=== PATIENT | male | born 1980 | race Hispanic/Latino ===

== ENCOUNTER → 2017-05-18 | Outpatient (CLI) | payer MEDICAID ==
[~2017-05-18] MED LIST: ESOM2.5S PO; hydrocodone
== END | disposition home or self-care (01) ==
LOC: RAH 09:48
PROVIDERS: ATTEND Internal Medicine
DX: R10.11 Right upper quadrant pain (principal); R16.0 Hepatomegaly, not elsewhere classified
CPT/HCPCS: 76705

== ENCOUNTER → 2017-12-18 | Outpatient (CLI) | payer MEDICAID | END | disposition home or self-care (01) | LOC: OIH 13:20 | PROVIDERS: ATTEND Internal Medicine | DX: M47.895 Other spondylosis, thoracolumbar region (principal); R06.02 Shortness of breath | CPT/HCPCS: 71046; 74018 ==

== ENCOUNTER 2018-01-20 21:18 | Emergency (ER) | payer MEDICAID ==
[2018-01-20] MEDS ORDERED: ASPIRIN 325 MG TABLET ONE (21:30)
[2018-01-20 21:37] LABS: BASOPHILS % (AUTO) 1.1 % (0.0-5.0); EOSINOPHILS % (AUTO) 0.2 % (0.0-8.0); HEMATOCRIT 47.6 % (42-54); LYMPHOCYTES % (AUTO) 17.6 % (21.0-51.0); MEAN CORPUSCULAR HEMOGLOBIN 31.9 pg (27.0-33.0); MEAN CORPUSCULAR HGB CONC 34.9 g/dL (32.0-36.0); MEAN CORPUSCULAR VOLUME 91.6 fL (79-99); MONOCYTES % (AUTO) 9.8 % (3.0-13.0); NEUTROPHILS % (AUTO) 71.3 % (40.0-77.0); PLATELET COUNT (AUTO) 254 K/uL (130-400); WHITE BLOOD COUNT (AUTO) 9.3 K/uL (4.8-10.8)
[2018-01-20 21:47] LABS: POTASSIUM 4.1 mmol/L (3.5-5.1)
[2018-01-20 21:50] LABS: INR 0.93 (0.85-1.15); PARTIAL THROMBOPLASTIN TIME 31.4 SEC (26.3-35.5); PROTHROMBIN TIME 9.8 SEC (9.6-11.6)
[2018-01-20] MEDS ORDERED: LIDOCAINE HCL 2% VISCOUS 15 ML UDCUP ONE (21:50)
[2018-01-20] MEDS ORDERED: MAGNESIUM HYDROXIDE 30 ML/UDCUP ONE (21:50)
[2018-01-20 21:52] LABS: ALBUMIN 3.9 g/dL (3.5-5.0); BILIRUBIN,TOTAL 0.3 mg/dL (0.2-1.0)
[2018-01-20 22:03] LABS: B-TYPE NATRIURETIC PEPTIDE 31 pg/mL (0-100)
[2018-01-20 22:03] LABS: AMPHET/METH SCREEN,URINE NEGATIVE (NEGATIVE); BARBITURATE SCREEN, URINE NEGATIVE (NEGATIVE); BENZODIAZEPINES SCREEN,URINE NEGATIVE (NEGATIVE); CANNABINOID SCREEN,URINE NEGATIVE (NEGATIVE); COCAINE SCREEN,URINE NEGATIVE (NEGATIVE); OPIATE SCREEN,URINE NEGATIVE (NEGATIVE); PHENCYCLIDINE SCREEN,URINE NEGATIVE (NEGATIVE)
[2018-01-20] MEDS ORDERED: DICYCLOMINE HCL 20 MG TAB ONE (22:37)
== END 2018-01-20 22:43 | disposition home or self-care (01) ==
LOC: EDH 21:18
DX: R07.89 Other chest pain (principal); I25.10 Atherosclerotic heart disease of native coronary artery without angina pectoris; Z72.0 Tobacco use
CPT/HCPCS: 36415; 71045; 80053; 80305; 82550; 83880; 84484; 85025; 85610; 85730; 93005; 94761

== ENCOUNTER → 2020-07-24 | Outpatient (CLI) | payer MEDICAID | END | disposition home or self-care (01) | LOC: OIH 09:20 | PROVIDERS: ATTEND Internal Medicine | DX: M24.9 Joint derangement, unspecified (principal); M25.511 Pain in right shoulder | CPT/HCPCS: 73030 ==

== ENCOUNTER 2022-06-15 13:01 | Emergency (ER) | payer MEDICAID ==
[~2022-06-15] VITALS: Ht 170.2 cm; Wt 117.9 kg
[2022-06-15 13:21] LABS: HEMATOCRIT 48.4 % (42-54); MEAN CORPUSCULAR HEMOGLOBIN 31.1 pg (27.0-33.0); MEAN CORPUSCULAR HGB CONC 35.1 g/dL (32.0-36.0); MEAN CORPUSCULAR VOLUME 88.5 fL (79-99); RED BLOOD CELL COUNT(AUTO) 5.47 MIL/uL (4.50-6.20); RED CELL DISTRIBUTION WIDTH 13.1 % (11.0-15.5); WHITE BLOOD COUNT (AUTO) 7.5 K/uL (4.8-10.8)
[2022-06-15 14:11] LABS: APPEARANCE,URINE CLEAR (CLEAR); BILIRUBIN,URINE NEGATIVE (NEGATIVE); COLOR,URINE LIGHT-YELLOW (YELLOW); GLUCOSE, URINE (UA) NEGATIVE (NEGATIVE); KETONES,URINE NEGATIVE (NEGATIVE); LEUKOCYTE ESTERASE ,URINE NEGATIVE Leu/uL (NEGATIVE); NITRATE,URINE NEGATIVE (NEGATIVE); OCCULT BLOOD,URINE NEGATIVE (NEGATIVE); PROTEIN,URINE NEGATIVE (NEGATIVE); UROBILINOGEN,URINE 0.2 mg/dL (0.2-1.0)
[2022-06-15 14:14] LABS: MUCUS,URINE RARE LPF (None Seen); RBC,URINE 0-1 /HPF (0-1)
[2022-06-15 15:06] LABS: CREATININE 0.8 mg/dL (0.5-1.5)
[2022-06-15 15:11] LABS: ALBUMIN 3.7 g/dL (3.5-5.0); TOTAL PROTEIN, SERUM 7.4 g/dL (6.0-8.3)
[2022-06-15] MEDS ORDERED: PREDNISONE 20 MG TABLET PO ONE (15:30)
[2022-06-15] MEDS ORDERED: PRED20TA3 PO (15:32)
[2022-06-15 15:35] VITALS: BP 128/84
[2022-06-15 16:06] LABS: POTASSIUM 3.9 mmol/L (3.5-5.1)
== END 2022-06-15 15:35 | disposition home or self-care (01) ==
LOC: EDH 13:01
DX: G51.0 Bell's palsy (principal); Z79.52 Long term (current) use of systemic steroids
CPT/HCPCS: 36415; 70450; 80053; 81001; 84484; 85027

== ENCOUNTER → 2023-04-13 | Outpatient (CLI) | payer MEDICAID ==
[~2023-04-13] MED LIST changes: +PRED20TA3 PO
== END | disposition home or self-care (01) ==
LOC: OIH 14:40
PROVIDERS: ATTEND Internal Medicine
DX: S80.01XA Contusion of right knee, initial encounter (principal); M23.90 Unspecified internal derangement of unspecified knee; X58.XXXA Exposure to other specified factors, initial encounter; Y93.89 Activity, other specified; Y92.89 Other specified places as the place of occurrence of the external cause; Y99.8 Other external cause status
CPT/HCPCS: 73560

== ENCOUNTER 2024-07-21 18:26 | Emergency (ER) | payer MEDICAID ==
[~2024-07-21] VITALS: Ht 170.2 cm; Wt 114.3 kg
[2024-07-21 18:27] VITALS: BP 129/79; PULSE 97; RESP 20; TEMP 98
--- NOTE | 2024-07-21 18:34 | EKG ---
[facility] Test Date: 2024-07-21 Test Time: 18:31:27 Pat Name: FLEX KIRK Department: ED Room: Gender: M Cumulative Effects Analyst: [id number] : 1980 Requested By: CHIOMA FAUST Order Number: [id number] Reading MD: Maty Darden Measurements Intervals [place] Rate: 84 P: 24 DE: 128 QRS: 39 QRSD: 96 T: 37 QT: 363 QTc: 430 Interpretive Statements Sinus rhythm Compared to ECG 01/20/2018 21:19:28 Short DE interval no longer present Electronically Signed On 07-22-2024 18:39:36 CDT by Maty Darden Please click the below link to view image of tracing.
--- NOTE | 2024-07-21 19:11 | ERN ---
ED Note History of Present Illness Stated Complaint: PALPITATIONS SINCE YESTERDAY Chief Complaint: Palpitations Time Seen by MD: 18:28 Time Seen by Midlevel: 18:28 Dictation: The patient is a 44-year-old male with a history of hyperlipidemia, hypertens ion, PVCs, anxiety who presents to the emergency department with complaints of palpitations onset yesterday associated with shortness of breath. Patient denies any chest pain, cough or upper respiratory symptoms. Reports he took his anxiety medication and symptoms have subsided. Allergies: Coded Allergies: No Known Allergies (Unverified Allergy, Unknown, 10/21/13) Home Meds Active Scripts Prednisone (Prednisone) 20 Mg Tablet, 3 TAB PO DAILY for 7 Days, #21 TAB 0 Refills Prov:JONELLE MALIK MD 06/15/22 Reported Medications Esomeprazole Magnesium (Nexium) Unknown Strength Suspdr.pkt, PO DAILY 10/21/13 [hydrocodone] No Conflict Check 10/21/13 Past Medical History Past Medical History: Anxiety, High Cholesterol, Other Additional Past Medical Hx: PVC, PT OF DR DE LA CRUZ Surgical History: None Social History: Other RN Note Reviewed/Agreed w/PFSH: Yes Review of System Dictation Constitutional: Negative for fever,chills, and weight loss Eyes: Negative for injury, pain,redness, and discharge ENT: Negative for injury,pain or swelling Cardiovascular: Negative for chest pain, and edema positive for palpitations Respiratory: Negative for , cough, and wheezing, positive for shortness of breath Abdomen/GI: Negative for abdominal pain, nausea, vomiting, diarrhea, and constipation Back: Negative for injury and pain : Negative for injury, bleeding and discharge MS/Extremity: Negative for injury and deformity Skin: Negative for rash, and discoloration Neuro: Negative for headache, weakness, numbness, tingling, and seizure Psych: Negative for suicide ideation, homicidal ideation, and hallucinations Initial Vital Sign VS Vital Signs Date Time Temp Pulse Resp B/P (MAP) Pulse Ox O2 Delivery O2 Flow Rate FiO2 07/21/24 18:27 98.1 97 20 129/79 99 Room Air 0 Physical Exam Dictation Vital Signs reviewed General Appearance: Alert, oriented x 3, no acute distress, well developed, nourished. Head and Face: non-traumatic. Eyes: PERRL, pink conjunctivas, eyelid no trauma, anterior chamber with arcus senilis. Ears: Pinnas intact and no signs of trauma or erythema ear canals clear and no discharge TM no erythema Nose: No discharge, no bleeding. Oropharynx: Mouth normal, tongue pink. pharynx clear,no erythema, tonsils no exudates, no abscesses noted, mucous membrane moist Neck: Supple, non-tender, no thyromegaly, no masses, no JVD, no bruits Breast:Deferred Chest:No tenderness, no crepitus, no paradoxical movement, no retractions Lungs:Clear, well-ventilated, symmetric, no rales, no wheezing, no rhonchi, no stridor, good breath sounds bilaterally Heart: Regular rate, regular rhythm, no murmur, no gallops Vascular: no peripheral edema, Abdomen: Soft, positive bowel sounds, nondistended, no guarding, nontender, no rebound, no masses no hepatomegaly, no splenomegaly, no Jackson's sign, no hernias. Rectal: Deferred Genital: Deferred Neurological: Normal speech, motor function intact, sensory function intact Musculoskeletal: Neck nontender, full range of motion, back nontender, full range of motion, Extremities: nontender, full range of motion Skin: Color pink, dry, no turgor, no rash, no lacerations, no abrasions, no contusions. Lymphatic: Deferred Results (Laboratory/Radiology) Laboratory/Radiology Laboratory Tests Test 07/21/24 19:10 White Blood Count 8.3 K/uL (4.8-10.8) Red Blood Count 5.28 MIL/uL (4.50-6.20) Hemoglobin 17.1 g/dL (14.0-18.0) Hematocrit 48.5 % (42-54) Mean Corpuscular Volume 91.9 fL (79-99) Mean Corpuscular Hemoglobin 32.4 pg (27.0-33.0) Mean Corpuscular Hemoglobin Concent 35.3 g/dL (32.0-36.0) Red Cell Distribution Width 13.6 % (11.0-15.5) Platelet Count 219 K/uL (130-400) Mean Platelet Volume 9.9 fL (7.5-10.5) Immature Granulocyte % (Auto) 0.2 % (0-1) Neutrophils (%) (Auto) 44.7 % (40.0-77.0) Lymphocytes (%) (Auto) 40.6 % (21.0-51.0) Monocytes (%) (Auto) 12.6 % (3.0-13.0) Eosinophils (%) (Auto) 1.4 % (0.0-8.0) Basophils (%) (Auto) 0.5 % (0.0-5.0) Neutrophils # (Auto) 3.7 K/uL (1.8-7.7) Lymphocytes # (Auto) 3.4 K/uL (1.0-4.8) Monocytes # (Auto) 1.1 K/uL (0.1-1.0) H Eosinophils # (Auto) 0.12 K/uL (0.00-0.70) Basophils # (Auto) 0.04 K/uL (0.00-0.20) Absolute Immature Granulocyte (auto 0.02 K/uL (0-1) Nucleated Red Blood Cells 0.0 % (0.0-0.19) Sodium Level 137 mmol/L (136-145) Potassium Level 3.8 mmol/L (3.5-5.1) Chloride Level 101 mmol/L (101-111) Carbon Dioxide Level 25 mmol/L (21-32) Blood Urea Nitrogen 16 mg/dL (7-18) Creatinine 0.9 mg/dL (0.5-1.3) Glomerular Filtration Rate Calc 107 mL/min (>90) Random Glucose 114 mg/dL (70-105) H Total Calcium 8.5 mg/dL (8.5-10.1) Magnesium Level 1.80 mg/dL (1.80-2.40) Total Creatine Kinase 326 U/L (21-232) #H Troponin I High Sensitivity 7.5 ng/L (4-75) B-Type Natriuretic Peptide < 5 pg/mL (0-100) REASON: palpitations ORDERING PHYSICIAN: CHIOMA FAUST PROCEDURE: CXR1VW - CHEST 1VW CHEST 1VW HISTORY: Palpitations COMPARISON: 01/20/2018 FINDINGS: A frontal projection of the chest was obtained. Prominent interstitial markings are seen with possible superimposed infiltrates. The heart is borderline enlarged. Mild degenerative changes are seen. No evidence of aortic calcification is seen. IMPRESSION: 1. Prominent interstitial markings are seen with possible superimposed infiltrates. Labs Reviewed?: Yes EKG: (+) rhythm (Sinus rhythm) EKG Comment: Date:07/21/2024 Time:1831 Ventricular rate:84 [place] interval:128 QRS duration:96 QT/QTc:363 EKG interpretation: Sinus rhythm Reviewed by ED Attending no STEMI ED Course ED Course Orders Procedure Category Date Status Time 12 Lead Ekg Tracing- EKG 07/21/24 Complete Technical 18:30 Cbc With Differential LAB 07/21/24 Complete 18:45 B-Type Natriuretic LAB 07/21/24 Complete Peptide 18:45 Chest 1vw RAD 07/21/24 Resulted 18:45 12 Lead Ekg Tracing- EKG 07/21/24 Logged Technical 18:45 Magnesium LAB 07/21/24 Complete 18:45 Basic Metabolic Panel LAB 07/21/24 Complete 18:45 Cardiac Panel LAB 07/21/24 Complete 18:45 Vital Signs Date Time Temp Pulse Resp B/P (MAP) Pulse Ox O2 Delivery O2 Flow Rate FiO2 07/21/24 18:27 98.1 97 20 129/79 99 Room Air 0 Medical Decision Making MDM The patient is a 44-year-old male with a history of hyperlipidemia, hypertension, PVCs, anxiety who presents to the emergency department with complaints of palpitations onset yesterday associated with shortness of breath. Patient denies any chest pain, cough or upper respiratory symptoms. Reports he took his anxiety medication and symptoms have subsided. Differential diagnosis: ACS, tachyarrhythmia, dehydration, electrolyte imbalance Attempted to contact patient for follow up but patient was then where to be found in the lobby. Was informed by ER staff the patient eloped from ER. DX & DISP Disposition: AMA Departure Condition: Stable Referrals: RICHARD BANSAL MD (PCP) I have reviewed the case, and I agree with, Diagnosis and Plan CHIOMA FAUST [employer]PA[employer] July 21, 2024 19:11
[2024-07-21 19:20] LABS: BASOPHILS # (AUTO) 0.04 K/uL (0.00-0.20); BASOPHILS % (AUTO) 0.5 % (0.0-5.0); EOSINOPHILS # (AUTO) 0.12 K/uL (0.00-0.70); EOSINOPHILS % (AUTO) 1.4 % (0.0-8.0); HEMATOCRIT 48.5 % (42-54); IMMATURE GRANULOCYTE ABSOLUTE 0.02 K/uL (0-1); LYMPHOCYTES # (AUTO) 3.4 K/uL (1.0-4.8); LYMPHOCYTES % (AUTO) 40.6 % (21.0-51.0); MEAN CORPUSCULAR HEMOGLOBIN 32.4 pg (27.0-33.0); MEAN CORPUSCULAR HGB CONC 35.3 g/dL (32.0-36.0); MEAN CORPUSCULAR VOLUME 91.9 fL (79-99); MONOCYTES # (AUTO) 1.1 K/uL (0.1-1.0); MONOCYTES % (AUTO) 12.6 % (3.0-13.0); NEUTROPHILS # (AUTO) 3.7 K/uL (1.8-7.7); NEUTROPHILS % (AUTO) 44.7 % (40.0-77.0); PLATELET COUNT (AUTO) 219 K/uL (130-400); RED BLOOD CELL COUNT(AUTO) 5.28 MIL/uL (4.50-6.20); RED CELL DISTRIBUTION WIDTH 13.6 % (11.0-15.5); WHITE BLOOD COUNT (AUTO) 8.3 K/uL (4.8-10.8)
[2024-07-21 19:26] LABS: CREATININE 0.9 mg/dL (0.5-1.3); POTASSIUM 3.8 mmol/L (3.5-5.1)
[2024-07-21 19:33] LABS: MAGNESIUM 1.8 mg/dL (1.80-2.40)
[2024-07-21 19:42] LABS: B-TYPE NATRIURETIC PEPTIDE < 5 pg/mL (0-100)
--- NOTE | 2024-07-21 20:48 | HMCIMG ---
CHEST 1VW HISTORY: Palpitations COMPARISON: 01/20/2018 FINDINGS: A frontal projection of the chest was obtained. Prominent interstitial markings are seen with possible superimposed infiltrates. The heart is borderline enlarged. Mild degenerative changes are seen. No evidence of aortic calcification is seen. IMPRESSION: 1. Prominent interstitial markings are seen with possible superimposed infiltrates.
--- NOTE | 2024-07-21 22:02 | NUR ---
PT CALLED, NO ANSWER, NOT IN LOBBY, NOT IN MAIN ER
--- NOTE | 2024-07-21 22:41 | NUR ---
CALLED FOR BEDDING. NO ANSWER
--- NOTE | 2024-07-21 23:00 | NUR ---
CALLED, NO ANSWER
--- NOTE | 2024-07-21 23:02 | NUR ---
PT CALLED, NO ANSWER, DID NOT COMMUNICATE WITH STAFF ON DESIRE TO LEAVE OR REASON WHY.
== END 2024-07-21 23:03 | disposition left against medical advice (07) ==
LOC: EDH 18:26
DX: R00.2 Palpitations (principal); E78.00 Pure hypercholesterolemia, unspecified; F41.9 Anxiety disorder, unspecified; Z79.52 Long term (current) use of systemic steroids
CPT/HCPCS: 36415; 71045; 80048; 82550; 83735; 83880; 84484; 85025; 93005; 99285